=== PATIENT | male | born 1990 | race American Indian/Alaskan Native ===

== ENCOUNTER 2022-02-14 14:11 | Emergency (ER) | payer SELFPAY ==
--- NOTE | 2022-02-14 14:59 | XRay Report ---
CHEST 2 VIEWS INDICATION / CLINICAL INFORMATION: Chest Pain. COMPARISON: None available. FINDINGS: SUPPORT DEVICES: None. HEART / MEDIASTINUM: No significant abnormality. LUNGS / PLEURA: No significant pulmonary or pleural abnormality. No pneumothorax. ADDITIONAL FINDINGS: No significant additional findings. IMPRESSION: 1. No acute findings. Signer Name: Tyrese Grant DO Signed: 02/14/2022 2:55 PM Workstation Name: [id number]
[2022-02-14 15:33] LABS: Hematocrit 44.7 % (35.5-45.6); Hemoglobin 15.6 gm/dl (11.8-15.2); Mean Corpuscular HGB Conc 35 % (32-34); Mean Corpuscular Volume 83 fl (84-94); Platelet Count 220 K/mm3 (140-440); Red Blood Count 5.38 M/mm3 (3.65-5.03); Red Cell Distribution Width 14.5 % (13.2-15.2)
[2022-02-14 15:39] LABS: Alanine Aminotransferase 25 units/L (7-56); Albumin 4.9 g/dL (3.9-5); BUN/Creatinine Ratio 5; Blood Urea Nitrogen 6 mg/dL (9-20); Calcium 9.6 mg/dL (8.4-10.2); Hemolysis Index 6
[2022-02-14] MEDS ORDERED: dexAMETHasone 4 MG/ML VIAL IV ONE ×2 (16:40→19:06)
[2022-02-14] MEDS ORDERED: SODIUM CHLORIDE 0.9% 1000 ML 1,000 ML IV ONE (16:40)
[2022-02-14] MEDS ORDERED: BENZONATATE 100 MG CAP PO ONE ×2 (16:40→19:05)
[2022-02-14 17:02] LABS: Mucus,Urine 3+ /HPF
[2022-02-14 17:12] LABS: Color,Urine Yellow (Yellow); RBC,Urine < 1.0 /HPF (0.0-6.0)
[2022-02-14 18:45] LABS: Basophils % (Manual) 0 % (0.0-1.8); Total Cells Counted 100
[2022-02-14 18:46] LABS: Eosinophils % (Manual) 0 % (0.0-4.3); Platelet Estimate Consistent w Auto; Schistocytes Few; Target Cells Few
[2022-02-14] MEDS ORDERED: KETOROLAC 30 MG/1 ML INJ IV ONE (19:06)
--- NOTE | 2022-02-14 19:31 | Emergency Department Report ---
ED Chest Pain HPI - General Chief Complaint: Chest Pain Stated Complaint: HIGH BLOOD PRESSURE,TIGHTNESS IN CHEST COLD SWEATS Time Seen by Provider: 02/14/22 16:22 Source: patient Mode of arrival: Ambulatory Limitations: No Limitations - History of Present Illness Initial Comments: 31-year-old black male with past medical history of hypertension presents to the emergency department for evaluation of tightness to his chest for the past 3 days along with cold sweats nausea, vomiting, and elevated blood pressure. He states that he has had elevated blood pressure for over a month because he ran out of his regular blood pressure medicine. He denies shortness of breath, dizziness, and diaphoresis. He states that he wakes up in a cold sweat every night and his symptoms are significantly worse at night. He states that he is also had a persistent cough with some congestion. MD Complaint: chest pain -: Gradual, days(s) (3) Onset: during rest Pain Location: substernal Pain Radiation: none Severity scale (0 -10): 7 Quality: tightness Consistency: intermittent Worsens With: supine re: nausea, vomting. denies: diaphoresis, dyspnea, sense of impending doom Other Symptoms: cough. denies: fever, syncope, rash, acid taste in mouth, leg swelling, palpitations, burping Treatments Prior to Arrival: none Aspirin use within the Past 7 Days: (0) No - Related Data Previous Rx's Medication Instructions Recorded Last Taken Type Atenolol [Tenormin] 100 mg PO DAILY #30 tab 02/14/22 Unknown Rx Benzonatate [Tessalon Perles] 100 mg PO Q8HR PRN #30 cap 02/14/22 Unknown Rx guaiFENesin/CODEINE [Robitussin AC] 10 ml PO TID PRN #120 ml 02/14/22 Unknown Rx Allergies Allergy/AdvReac Type Severity Reaction Status Date / Time cefaclor [From [facility]] Allergy Anaphylaxis Verified 02/14/22 14:25 Heart Score - HEART Score History: Slightly suspicious EKG: Normal Age: < 45 Risk factors: 1-2 risk factors Troponin: < normal limit HEART Score: 1 - EKG Read Time Time EKG Completed: 14:30 EKG Read Time: 14:35 - Critical Actions Critical Actions: 0-3 pts:0.9-1.7%risk of adverse cardiac event.Candidate for discharge ED Review of Systems ROS: Stated complaint: HIGH BLOOD PRESSURE,TIGHTNESS IN CHEST COLD SWEATS Other details as noted in HPI Comment: All other systems reviewed and negative Constitutional: chills. denies: fever Eyes: denies: vision change ENT: congestion Respiratory: cough. denies: shortness of breath, SOB with exertion, SOB at rest, stridor, wheezing Cardiovascular: chest pain. denies: palpitations, dyspnea on exertion, orthopnea, edema, syncope, paroxysmal nocturnal dyspnea Gastrointestinal: nausea, vomiting. denies: abdominal pain, diarrhea, hematemesis, melena, hematochezia Genitourinary: denies: urgency, dysuria, frequency, hematuria, discharge Musculoskeletal: denies: back pain Neurological: denies: headache, weakness ED Past Medical Hx - Past Medical History Previous Medical History?: Yes Hx Hypertension: Yes - Surgical History Past Surgical History?: No - Medications Home Medications: Home Medications Medication Instructions Recorded Confirmed Last Taken Type Atenolol [Tenormin] 100 mg PO DAILY #30 tab 02/14/22 Unknown Rx Benzonatate [Tessalon Perles] 100 mg PO Q8HR PRN #30 cap 02/14/22 Unknown Rx guaiFENesin/CODEINE [Robitussin AC] 10 ml PO TID PRN #120 ml 02/14/22 Unknown Rx ED Physical Exam - General Limitations: No Limitations General appearance: alert, in no apparent distress - Head Head exam: Present: atraumatic, normocephalic - Eye Eye exam: Present: normal appearance. Absent: conjunctival injection, periorbital swelling, periorbital tenderness - ENT ENT exam: Present: normal exam - Neck Neck exam: Present: normal inspection, full ROM. Absent: tenderness, mening ismus, lymphadenopathy - Respiratory Respiratory exam: Present: normal lung sounds bilaterally. Absent: respiratory distress, wheezes, rales, rhonchi, stridor, chest wall tenderness - Cardiovascular Cardiovascular Exam: Present: regular rate, normal heart sounds - GI/Abdominal GI/Abdominal exam: Present: soft, normal bowel sounds. Absent: distended, tenderness, guarding, rebound, rigid - Extremities Exam Extremities exam: Present: normal inspection, full ROM, normal capillary refill. Absent: tenderness, pedal edema, joint swelling, calf tenderness - Back Exam Back exam: Present: normal inspection. Absent: CVA tenderness (R), CVA tenderness (L), vertebral tenderness - Neurological Exam Neurological exam: Present: alert, oriented X3, CN II-XII intact, normal gait - Psychiatric Psychiatric exam: Present: normal affect, normal mood - Skin Skin exam: Present: warm, dry, intact, normal color ED Course Vital Signs 02/14/22 02/14/22 14:22 19:47 Temperature 98.5 F Pulse Rate 92 H 73 Respiratory 18 17 Rate Blood Pressure 169/124 158/103 [Left] O2 Sat by Pulse 99 98 Oximetry JEISON score - Jeison Score Age > 65: (0) No Aspirin use within the Past 7 Days: (0) No 3 or more CAD Risk Factors: (0) No 2 or more Angina events in past 24 hrs: (1) Yes Known CAD with more than 50% Stenosis: (0) No Elevated Cardiac Markers: (0) No ST Deviation Greater than 0.5mm: (0) No JEISON Score: 1 ED Medical Decision Making - Lab Data Result diagrams: 02/14/22 14:58 02/14/22 14:58 - EKG Data EKG shows normal: sinus rhythm Rate: normal - EKG Data Interpretation: no acute changes, normal EKG - Radiology Data Radiology results: report reviewed, image reviewed Chest x-ray: FINDINGS: SUPPORT DEVICES: None. HEART / MEDIASTINUM: No significant abnormality. LUNGS / PLEURA: No significant pulmonary or pleural abnormality. No pneumothorax. ADDITIONAL FINDINGS: No significant additional findings. IMPRESSION: 1. No acute findings. - Medical Decision Making 31-year-old black male with past medical history of hypertension presents to the emergency department for evaluation of tightness to his chest for the past 3 days along with cold sweats nausea, vomiting, and elevated blood pressure. He states that he has had elevated blood pressure for over a month because he ran out of his regular blood pressure medicine. He denies shortness of breath, dizziness, and diaphoresis. He states that he wakes up in a cold sweat every night and his symptoms are significantly worse at night. He states that he is also had a persistent cough with some congestion. Physical exam unremarkable. Work-up unremarkable. Patient be discharged home with Robitussin-AC to use for cough and congestion along with Tessalon Perles and Medrol Dosepak. Will refill patient's home atenolol. He is advised to monitor and record blood pressure and follow-up with his primary care provider for further evaluation and management and return to the emergency department as needed. He verbalizes understanding of and agreement with plan of care. Critical care attestation.: If time is entered above; I have spent that time in minutes in the direct care of this critically ill patient, excluding procedure time. ED Disposition Clinical Impression: Medication refill Chest pain Qualifiers: Chest pain type: unspecified Qualified Code(s): R07.9 - Chest pain, unspecified URI (upper respiratory infection) Qualifiers: URI type: unspecified URI Qualified Code(s): J06.9 - Acute upper respiratory infection, unspecified Disposition: 01 HOME / SELF CARE / HOMELESS Is pt being admited?: No Does the pt Need Aspirin: No Condition: Stable Instructions: Viral Respiratory Infection, [id number], Nonspecific Chest Pain, Adult, [id number] Additional Instructions: Take medications as prescribed. Restart atenolol as previously prescribed and then monitor and document blood pressure and if no improvement follow-up with your primary care provider for further evaluation and management. Return to the emergency department as needed. Prescriptions: guaiFENesin/CODEINE [Robitussin AC] 10 ml PO TID PRN #120 ml PRN Reason: Cough Atenolol [Tenormin] 100 mg PO DAILY #30 tab Benzonatate [Tessalon Perles] 100 mg PO Q8HR PRN #30 cap PRN Reason: Cough Referrals: PRIMARY CARE, [Primary Care Provider] - 3-5 Days Forms: Work/School Release Form(ED) Time of Disposition: 19:37
[2022-02-14 19:49] VITALS: BP 158/103
--- NOTE | 2022-02-15 10:55 | Electrocardiograph Report ---
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
== END 2022-02-14 19:47 | disposition home or self-care (01) ==
LOC: ED 14:11
DX: R07.9 Chest pain, unspecified (principal); J06.9 Acute upper respiratory infection, unspecified; I10 Essential (primary) hypertension; Z76.0 Encounter for issue of repeat prescription; Z88.8 Allergy status to other drugs, medicaments and biological substances
CPT/HCPCS: 36415; 71046; 80053; 81001; 84484; 85007; 85025; 93005; 96361; 96374; 96375; 99284; J1100; J1885